=== PATIENT | male | born 1960 | race Caucasian/White ===

== ENCOUNTER 2018-05-07 22:42 | Emergency (ER) | payer BC ==
[~2018-05-07] VITALS: Ht 177.8 cm; Wt 85.7 kg
[~2018-05-07 22:42] MED LIST: ALLEGRA ALLERG180 MG PO; AMANTADINE100 M1 PO; ASPIR 8181 MG PO; REMERON15 M2 PO; SINEMET 25-1001 EAC1
[2018-05-07 22:54] VITALS: BP 126/76
[2018-05-07] MEDS ORDERED: MELATONIN3 MG PO (22:59)
[2018-05-07] MEDS ORDERED: NORFLEX100 MG PO (23:25)
[2018-05-07] MEDS ORDERED: IBUPROFEN 600600 M1 PO (23:25)
== END 2018-05-07 23:38 | disposition home or self-care (01) ==
LOC: ER 22:42
DX: S86.911A Strain of unspecified muscle(s) and tendon(s) at lower leg level, right leg, initial encounter (principal); X58.XXXA Exposure to other specified factors, initial encounter; G20 Parkinson's disease; Y93.89 Activity, other specified; Y92.89 Other specified places as the place of occurrence of the external cause; Y99.8 Other external cause status